=== PATIENT | female | born 1995 | race Caucasian/White ===

== ENCOUNTER 2020-03-28 13:13 | Inpatient (IN) ==
[~2020-03-28 13:13] MED LIST: *HR* Nalbuphine 10 MG/ML AMPUL IV PRN; Famotidine 20 MG/2 ML VIAL IVP PRN; Lidocaine 1% 20 ML MDV INFILT PRN; Metoclopramide 10 MG/2 ML VIAL IVP PRN; Naloxone 0.4 MG/ML INJ IVP PRN; Ondansetron 4 MG/2 ML VIAL IVP PRN
[2020-03-28] MEDS ORDERED: Ringers Solution, Lactated 1,000 ML IVC SCH (13:15)
[2020-03-28 17:36] LABS: Amphetamine Screen,Urine Negative ng/mL (Cutoff=1000); Barbiturate Screen,Urine Negative ng/mL (Cutoff=200); Benzodiazepines Screen,Urine Negative ng/mL (Cutoff=200); Cannabinoid Screen,Urine Negative ng/mL (Cutoff = 50); Cocaine Screen,Urine Negative ng/mL (Cutoff= 300); Opiate Screen,Urine Negative ng/mL (Cutoff=300); Phencyclidine Screen,Urine Negative ng/mL (Cutoff=25)
[2020-03-28 17:51] LABS: Red Cell Distribution Width 13.2 % (11.5-14.5)
[2020-03-28 17:54] LABS: Immature Platelets 25.7 % (1.1-6.1); Mean Corpuscular Volume 97.4 fL (83.0-100.0)
[2020-03-28 18:00] LABS: Basophils # 0.1 K/mcL (0.0-0.2); Basophils % 0.6 %; Eosinophils # 0.1 K/mcL (0.0-0.6); Eosinophils % 0.6 %; Hematocrit 41.5 % (35.3-44.9); Hemoglobin 13.8 g/dL (11.5-15.4); Immature Granulocytes % 1.2 % (0-4); Lymphocytes # 1.6 K/mcL (0.6-4.6); Lymphocytes % 14.9 %; Mean Corpuscular HGB Conc 33.3 g/dL (31.6-35.5); Mean Corpuscular Hemoglobin 32.4 pg (28.0-33.3); Mean Platelet Volume 14.5 fL (9.4-12.4); Monocytes # 0.8 K/mcL (0.0-1.3); Monocytes % 7.5 %; Platelet Count 127 K/mcL (140-400); Red Blood Count 4.26 M/mcL (3.82-4.97); Segmented Neutrophils % 75.2 %; White Blood Count 10.8 K/mcL (4.3-11.1)
[2020-03-28] MEDS ORDERED: Oxytocin 20 units/ LR 1000 mL 20 UNIT/1,000 ML BAG IVC SCH (18:30)
[2020-03-28 18:41] LABS: Neutrophils # 8.1 K/mcL (1.6-8.9)
[2020-03-28 18:43] LABS: Large Platelets Present (Not Present); Platelet Estimate Normal (Normal)
[2020-03-28] MEDS ORDERED: *HR* FentaNYL (PF) 100 MCG/2 ML VIAL EP ONE (18:46)
[2020-03-28] MEDS ORDERED: Bupivacaine-MPF 0.25% 10 ML VIAL EP ONE (18:46)
[2020-03-28] MEDS ORDERED: EPHEDrine 50 MG/ML VIAL IVP PRN (18:46)
[2020-03-28] MEDS ORDERED: Bupivacaine-MPF 0.25% 10 ML VIAL ONE (18:48)
[2020-03-28] MEDS ORDERED: *HR* FentaNYL (PF) 100 MCG/2 ML VIAL ONE (18:48)
[2020-03-28] MEDS ORDERED: Epidural Premix (fent/bupiv) 110 ML EP SCH (19:00)
[2020-03-29] MEDS ORDERED: Oxytocin 20 units/ LR 1000 mL 20 UNIT/1,000 ML BAG IVC SCH (01:48)
[2020-03-29] MEDS ORDERED: Measles/Mumps/Rubella Vacc 0.5 ML VIAL SQ PRN (01:48)
[2020-03-29] MEDS ORDERED: Rho Immune Globulin 1,500 UNIT SYRINGE IM PRN (01:48)
[2020-03-29] MEDS: Acetaminophen 325 MG TABLET PO PRN ×3 (02:14→19:40)
[2020-03-29 04:46] LABS: Basophils % 0.3 %; Hematocrit 36.5 % (35.3-44.9); Mean Platelet Volume 14.1 fL (9.4-12.4)
[2020-03-29 04:49] LABS: Basophils # 0.1 K/mcL (0.0-0.2); Eosinophils % 0.3 %; Hemoglobin 12.3 g/dL (11.5-15.4); Immature Granulocytes % 0.6 % (0-4); Immature Platelets 19.3 % (1.1-6.1); Lymphocytes # 1.7 K/mcL (0.6-4.6); Lymphocytes % 10.5 %; Mean Corpuscular HGB Conc 33.7 g/dL (31.6-35.5); Mean Corpuscular Hemoglobin 32.5 pg (28.0-33.3); Mean Corpuscular Volume 96.6 fL (83.0-100.0); Monocytes # 0.8 K/mcL (0.0-1.3); Monocytes % 5.3 %; Platelet Count 123 K/mcL (140-400); Red Blood Count 3.78 M/mcL (3.82-4.97); Red Cell Distribution Width 13.1 % (11.5-14.5); White Blood Count 15.7 K/mcL (4.3-11.1)
[2020-03-29 04:57] LABS: Eosinophils # 0.1 K/mcL (0.0-0.6)
[2020-03-29] MEDS: Ibuprofen 600 MG TABLET PO PRN ×3 (07:16→21:55)
[2020-03-29] MEDS: Prenatal Vit/FA 1 EACH TABLET PO SCH (10:41)
[2020-03-30] MEDS: Ibuprofen 600 MG TABLET PO PRN (05:08)
[2020-03-30] MEDS ORDERED: Lanolin 7 G OINT...G. TP PRN (05:11)
[2020-03-30] MEDS: Prenatal Vit/FA 1 EACH TABLET PO SCH (06:28)
[2020-03-30 12:22] VITALS: BP 140/80
== END 2020-03-30 12:20 | disposition home or self-care (01) | DRG 560 ==
LOC: 1NENULAB → 1NENUOBS 03-29 05:18
PROVIDERS: ADMIT Obstetrics & Gynecology; ATTEND Obstetrics & Gynecology